=== PATIENT | female | born 2005 | race Caucasian/White ===

== ENCOUNTER 2024-08-22 12:34 | Inpatient (IN) | payer OTHER ==
[~2024-08-22] VITALS: Ht 157.5 cm; Wt 76.2 kg
[2024-08-22 13:13] LABS: HEMATOCRIT 36.9 % (35.0-50.0); HEMOGLOBIN 12.4 g/dL (12.0-18.0); MCHC 33.5 g/dl (30-36); MCV 80.8 fl (81-99); RBC 4.57 M/ul (4.3-5.7); RDW 15.3 (10.5-15.0)
[2024-08-22] MEDS ORDERED: LACTATED RINGER'S 1,000 ML IV PRN (13:15)
[2024-08-22] MEDS ORDERED: OXYTOCIN/DEXTROSE 5% 20 UNITS/100 ML BAG IV SCH (13:15)
[2024-08-22] MEDS ORDERED: MAGNESIUM HYDROXIDE/AL HYDROX 30 ML CUP PO PRN (13:15)
[2024-08-22] MEDS ORDERED: CALCIUM CARBONATE 500 MG CHEW PO PRN (13:15)
[2024-08-22 13:33] VITALS: BP 126/80
[2024-08-22 13:44] LABS: ABO A; ANTIBODY SCREEN NEGATIVE; RH POSITIVE
[2024-08-22] MEDS ORDERED: ondansetron HCL 4 MG/2 ML VIAL IV PRN ×4 (14:00→19:15)
[2024-08-22 14:05] LABS: AMPHETAMINES, URINE NEGATIVE (NEGATIVE); BARBITURATES, URINE NEGATIVE (NEGATIVE); BENZODIAZEPINE, URINE NEGATIVE (NEGATIVE); BUPRENORPHINE, URINE NEGATIVE (NEGATIVE); CANNABINOID, URINE NEGATIVE (NEGATIVE); COCAINE, URINE NEGATIVE (NEGATIVE); ECSTASY, URINE NEGATIVE (NEGATIVE); FENTANYL, URINE NEGATIVE (NEGATIVE); METHADONE, URINE NEGATIVE (NEGATIVE); OPIATES, URINE NEGATIVE (NEGATIVE); OXYCODONE, URINE NEGATIVE (NEGATIVE); PHENCYCLIDINE, URINE NEGATIVE (NEGATIVE)
--- NOTE | 2024-08-22 16:20 | PR ---
[facility] [facility] [address], [place] [address] Signed Progress Notes IP Datetime Report Generated by CPN: 08/22/2024 16:19 PROGRESS NOTES: [id number] Impression: Normal Progression of Labor; Reassuring Heart Rate Other Impressions: SROM light mec Procedures: Sterile Vag Exam Plan: Continue Present Management Informed Consent Obtain: Vaginal Delivery; Section Delivery; Risks, Benefits and Alternatives Discussed VITAL SIGNS: [id number] Vital Signs: Reviewed; Within Normal Limits VS Notable Details: very active 1st stage labor EXAM: [id number] Dilatation: 10.0 Effacement: 100 Station: 1 Contractions: q 2 min MEMBRANES: [id number] Comments: Called to pt's room for prolonged deceleration. Pt was seen and examined. Pushing well w/ contractions. Prolonged deceleration w/ pushing now with recovery of heartrate. Reviewed heart tracing w/ patient, reassuring FHT w/ moderate varibility and accelerations. Discussed indications for if needed, and will be monitoring closely. Pt strongly desires . All questions answered to the best of my ability and to patient and family's satisfaction FETUS A: [id number] FHR Baseline: 135 Variability: Moderate 6-25bpm Accelerations: 15X15 Decelerations: Prolonged FHR Category: Category II Presentation: Vertex Comments on Fetus A: stable fetus, reassuring FHR tracing FETUS B: [id number] Signing Physician: Yessica Gusman DO *Electronically Signed* 08/22/24 4436 YESSICA GUSMAN (JEREMY) DO PATIENT NAME: GLO MITCHELL PROGRESS NOTE DATE OF : 04 PHYSICIAN: YESSICA GUSMAN (JD) DO RPT #: [id number] REPORT IS CONFIDENTIAL AND NOT TO BE RELEASED WITHOUT AUTHORIZATION
[2024-08-22] MEDS ORDERED: TERBUTALINE SULFATE 1 MG/ML AMP SUB-Q ONE (16:25)
[2024-08-22] MEDS ORDERED: TRANEXAMIC ACID IN NACL,ISO-OS 0 ML IV ONE (16:28)
[2024-08-22] MEDS ORDERED: AZITHROMYCIN/DEXTROSE 500 MG/250 ML PIGGYBACK ONE (16:28)
[2024-08-22] MEDS ORDERED: CEFAZOLIN SODIUM 2 GM/20 ML SYR ONE (16:28)
[2024-08-22] MEDS ORDERED: AZITHROMYCIN/DEXTROSE 500 MG/250 ML PIGGYBACK IV ONE (16:30)
--- NOTE | 2024-08-22 16:37 | PR ---
[facility] [address] [place], [place] [address] Signed Progress Notes IP Datetime Report Generated by CPN: 08/22/2024 16:37 PROGRESS NOTES: [id number] Impression: Non-reassuring Heart Rate Other Impressions: SROM light mec Procedures: Sterile Vag Exam Plan: Deliver- Section Informed Consent Obtain: Section Delivery; Risks, Benefits and Alternatives Discussed VITAL SIGNS: [id number] Vital Signs: Reviewed; Within Normal Limits VS Notable Details: very active 1st stage labor EXAM: [id number] Dilatation: 10.0 Effacement: 100 Station: 1 Contractions: q 2 min MEMBRANES: [id number] Comments: Pt pushing well w/ contractions. Recurrent prolonged deceleration remote from delivery and not arely to operative vaginal delivery due to high station. Recommended primary C/S. Consents signed, OR crew called an en route. Terbutaline administered. To the OR for C/S. All questions answered and pt understands and agrees. FETUS A: [id number] FHR Baseline: 135 Variability: Moderate 6-25bpm Accelerations: 15X15 Decelerations: Prolonged FHR Category: Category II Presentation: Vertex Comments on Fetus A: stable fetus, reassuring FHR tracing FETUS B: [id number] Signing Physician: Yessica Gusman DO Copies: ~ *Electronically Signed* 08/22/24 3499 YESSICA GUSMAN (JEREMY) DO PATIENT NAME: GLO MITCHELL PROGRESS NOTE DATE OF : 04 PHYSICIAN: YESSICA GUSMAN (JD) DO RPT #: [id number] REPORT IS CONFIDENTIAL AND NOT TO BE RELEASED WITHOUT AUTHORIZATION
[2024-08-22] MEDS ORDERED: CEFAZOLIN SODIUM 2 GM/20 ML SYR IV ONE (16:45)
[2024-08-22] MEDS ORDERED: AZITHROMYCIN 500 MG in DEXTROSE 5% 250 ML IV ONE (17:00)
[2024-08-22] MEDS ORDERED: diphenhydrAMINE HCL 50 MG/ML VIAL IV PRN (18:15)
[2024-08-22] MEDS ORDERED: HYDROmorphone HCL 1 MG/ML SYR IV PRN (18:15)
[2024-08-22] MEDS ORDERED: IBLOOD GLUCOSE TEST STRIP 1 EA TEST VI PRN (18:15)
[2024-08-22] MEDS ORDERED: NALOXONE HCL 0.4 MG SYR IV PRN ×2 (18:15)
[2024-08-22] MEDS ORDERED: fentaNYL citrate 50 MCG/ML SDV IV PRN (18:15)
[2024-08-22 18:34] VITALS: BP 109/55
--- NOTE | 2024-08-22 18:39 | NUR ---
08/22/24 183 Savana Mccrary 1749 PT ARRIVED IN PACU WIDE AWAKE. FAMILY IN ROOM. 1750 MOM BREAST FEEDING BABY WITH HELP FROM [facility] RN'S. 1800 PT BREAST FEEDING AND TALKING TO STAFF. NO C/O'S. 180 TAKING SIPS OF WATER. 1816 REPORT GIVEN TO RN. FAMILY AT BEDSIDE.
[2024-08-22] MEDS ORDERED: LACTATED RINGER'S 1,000 ML IV SCH (19:07)
[2024-08-22] MEDS ORDERED: bisacodyL 10 MG SUPP PR PRN (19:15)
[2024-08-22] MEDS ORDERED: OXYTOCIN/0.9 % SODIUM CHLORIDE 500 ML IV SCH (19:15)
[2024-08-22] MEDS ORDERED: METOCLOPRAMIDE HCL 10 MG/2 ML SDV IV PRN (19:15)
[2024-08-22] MEDS ORDERED: OXYCODONE/APAP 5/325 TAB PO PRN (19:15)
[2024-08-22] MEDS ORDERED: OXYCODONE HCL 5 MG TAB PO PRN (19:15)
[2024-08-22] MEDS ORDERED: HYDROCODONE/ACETA 5/325 TAB PO PRN (19:15)
[2024-08-22] MEDS ORDERED: PROCHLORPERAZINE EDISYLATE 10 MG/2 ML VIAL IV PRN (19:15)
[2024-08-22] MEDS ORDERED: PROMETHAZINE HCL 25 MG TAB PO PRN (19:15)
[2024-08-22] MEDS ORDERED: PROMETHAZINE HCL 25 MG SUPP PR PRN (19:15)
[2024-08-22] MEDS ORDERED: KETOROLAC TROMETHAMINE 30 MG/ML VIAL IV SCH ×2 (20:00→23:00)
[2024-08-22] MEDS ORDERED: SENNOSIDES/DOCUSATE 1 EA TAB PO SCH (21:00)
[2024-08-22] MEDS ORDERED: SIMETHICONE 125 MG TABLET CHEWABLE PO SCH (21:00)
[2024-08-23 05:29] LABS: HEMATOCRIT 30.2 % (35.0-50.0); HEMOGLOBIN 10.1 g/dL (12.0-18.0); MCH 27.2 (27-36); MCHC 33.4 g/dl (30-36); MCV 81.6 fl (81-99); RBC 3.7 M/ul (4.3-5.7); RDW 15.6 (10.5-15.0)
[2024-08-23] MEDS ORDERED: FERROUS SULFATE 325 MG TAB PO SCH (08:00)
[2024-08-23] MEDS ORDERED: ENOXAPARIN SODIUM 40 MG/0.4 ML SYR SUB-Q SCH (09:00)
[2024-08-23] MEDS ORDERED: IBUPROFEN 600 MG TAB PO SCH ×2 (20:00→23:00)
--- NOTE | 2024-08-23 20:35 | PR ---
[facility] [address] [facility] [place], [place] [address] Signed PP Progress Notes Datetime Report Generated by CPN: 08/23/2024 20:35 SUBJECTIVE: [id number] Pain: Within Normal Limits Nausea/Vomiting: Denies Flatus: Yes Bowel Movement: No Vital Signs: [id number] Vital Signs: Reviewed Notable Details: Mild tachycardia Cardiovascular: Normal Abdomen/Uterus: Normal Lochia: Normal Vulva/Perineum: Not Done Breasts: Not Done CVA Tenderness: Normal Extremities: Normal Incision: Normal Progress: Normal Exam Comments: Fundus firm U-2. Bandaged incision clean /dry IMPRESSION/PLAN/PROCEDURES: [id number] Impression: Normal Progression Plan: Continue Present Management Progress Notes: Late note from 07:45 Pt seen and examined. Doing well. Amulating and tolerating full diet. Verma cath in place draining large amount clear fluid. No abnormal bleeding or other concerns. well. No fevers/chills. Continue routine postop care Signing Physician: Yessica Gusman DO Copies: ~ *Electronically Signed* 08/23/242034 YESSICA GUSMAN (JEREMY) DO PATIENT NAME: GLO MITCHELL PROGRESS NOTE DATE OF : 04 PHYSICIAN: YESSICA GUSMAN (JEREMY) DO RPT #: [id number] REPORT IS CONFIDENTIAL AND NOT TO BE RELEASED WITHOUT AUTHORIZATION
--- NOTE | 2024-08-24 07:48 | PR ---
[facility] [address] [facility] [place], [place] [address] Signed PP Progress Notes Datetime Report Generated by CPN: 08/24/2024 07:48 SUBJECTIVE: [id number] Pain: Within Normal Limits Nausea/Vomiting: Denies Flatus: Yes Bowel Movement: Yes Vital Signs: [id number] Vital Signs: Reviewed; Within Normal Limits Notable Details: Mild tachycardia Cardiovascular: Normal Respiratory: Normal Abdomen/Uterus: Normal Lochia: Normal Vulva/Perineum: Not Done Breasts: Not Done CVA Tenderness: Normal Extremities: Normal Incision: Normal Progress: Normal Exam Comments: Fundus firm U-2 nontender. Incision healing well IMPRESSION/PLAN/PROCEDURES: [id number] Impression: Normal Progression Plan: Continue Present Management Progress Notes: Pt seen and examined. Doing well. Ambulating, voiding, and tolerating full diet. Pain and lochia minimal. well. No fevers/chills or concerns. Anticipate d/c home tomorrow. Signing Physician: Yessica Gusman DO Copies: ~ *Electronically Signed* 08/24/24 0748 YESSICA GUSMAN (JEREMY) DO PATIENT NAME: GLO MITCHELL PROGRESS NOTE DATE OF : 04 PHYSICIAN: YESSICA GUSMAN (JEREMY) DO RPT #: [id number] REPORT IS CONFIDENTIAL AND NOT TO BE RELEASED WITHOUT AUTHORIZATION
--- NOTE | 2024-08-25 07:05 | PR ---
[facility] [address] [place], [place] [address] Signed PP Progress Notes Datetime Report Generated by CPN: 08/25/2024 07:05 SUBJECTIVE: [id number] Pain: Within Normal Limits Nausea/Vomiting: Denies Flatus: Yes Bowel Movement: Yes Vital Signs: [id number] Vital Signs: Reviewed; Within Normal Limits Notable Details: Mild tachycardia Cardiovascular: Not Done Respiratory: Not Done Abdomen/Uterus: Normal Lochia: Normal Vulva/Perineum: Not Done Breasts: Not Done CVA Tenderness: Not Done Extremities: Normal Incision: Normal Progress: Normal Exam Comments: Fundus firm U-2 nontender. Incision healing well IMPRESSION/PLAN/PROCEDURES: [id number] Impression: Normal Progression Plan: Remove Moro; Discharge Procedures: None Progress Notes: S: 18 yo s/p primary LTCS. POD #3. Doing well. Denies BRYANT, CP, SOB, F/C, N/V, RUQ pain, changes in vision, vaginal discharge. Tolerating regular diet, ambulating, voiding on own, pain controlled. O: AFVSS Abd: Soft. Appropriately TTP. Fundus firm and below umbilicus. Incision C/D/I. No erythema or drainage. Keiko in place. Musc: TAMIA A/P: 18 yo s/p primary LTCS. POD #3. Doing well. Meeting all hospital milestones. Will discharge home today. Signing Physician: Lillie Sierra MD *Electronically Signed* 08/25/24 0705 LILLIE SIERRA MD PATIENT NAME: GLO MITCHELL PROGRESS NOTE DATE OF : 04 PHYSICIAN: LILLIE SIERRA MD RPT #: [id number] REPORT IS CONFIDENTIAL AND NOT TO BE RELEASED WITHOUT AUTHORIZATION
== END 2024-08-25 11:35 | disposition home or self-care (01) | DRG 788 ==
LOC: FBCO 12:34 → FBC 12:40 → MS 08-23 22:14 → FBC 08-23 23:46
PROVIDERS: ADMIT Obstetrics & Gynecology; ATTEND Obstetrics & Gynecology
PROC: 10D00Z1 Extraction of Products of Conception, Low, Open Approach (ICD-10-PCS; principal; 2024-08-22 16:45)
DX: O48.0 Post-term pregnancy (principal); O76 Abnormality in fetal heart rate and rhythm complicating labor and delivery; Z3A.40 40 weeks gestation of pregnancy; Z37.0 Single live birth; O77.0 Labor and delivery complicated by meconium in amniotic fluid; O69.81X0 Labor and delivery complicated by cord around neck, without compression, not applicable or unspecified; R00.0 Tachycardia, unspecified; O36.8330 Maternal care for abnormalities of the fetal heart rate or rhythm, third trimester, not applicable or unspecified; Z86.59 Personal history of other mental and behavioral disorders; Z88.1 Allergy status to other antibiotic agents
CPT/HCPCS: 01961; 36415; 76942; 80307; 82803; 85027; 86850; 86900; 86901; A9270; J0456; J0690; J1650; J1885; J2405; J3105; J7121